=== PATIENT | male | born 1955 | race Caucasian/White ===

== ENCOUNTER 2025-06-27 00:47 | Inpatient (IN) | payer MEDICARE, SELFPAY ==
[~2025-06-27] VITALS: Ht 175.3 cm; Wt 94.2 kg
[2025-06-27] VITALS (17 sets, daily range): BP systolic 98–168; BP diastolic 57–83; TEMP 96.8–97.5; O2SAT 95–97
[~2025-06-27 00:47] MED LIST: UNRESOLVED CLARIFICATION ENTRY XX SCH
[2025-06-27] MEDS ORDERED: MOM 30 ML SUSPENSION UDC PO PRN (03:45)
[2025-06-27] MEDS ORDERED: MAALOX 30 ML SUSP *UDC PO PRN (03:45)
[2025-06-27] MEDS ORDERED: traZODone 50 MG TAB PO PRN (03:45)
[2025-06-27 05:01] LABS: BASO # 0.1 10^3/uL (0.0-0.2); BASO % 0.7 % (0.0-1.0); EOS # 0.3 10^3/uL (0.0-0.5); EOS % 3.7 % (0.0-3.0); LYMPH # 1.7 10^3/uL (1.5-5.0); LYMPH % 23.2 % (24.0-44.0); MONO # 0.5 10^3/uL (0.0-0.8); MONO % 7.2 % (2.0-8.0); NEUTROPHILS # 4.7 10^3/uL (1.5-8.5); NEUTROPHILS % 64.9 % (36.0-66.0); PLATELET COUNT, AUTOMATED 245 10^3/uL (150-450)
[2025-06-27 05:33] LABS: ALT/SGPT 24 U/L (7.0-40); AST/SGOT 27 U/L (<34); CALCIUM LEVEL 8.8 MG/DL (8.3-10.6); CARBON DIOXIDE LEVEL 22 MMOL/L (20-31); CHLORIDE LEVEL 110 MMOL/L (98-107); CREATININE FOR GFR 0.84 MG/DL (0.70-1.30); GLOMERULAR FILTRATION RATE > 90.0 (>42); MAGNESIUM LEVEL 2.2 MG/DL (1.8-2.4); POTASSIUM SERUM 4.1 MMOL/L (3.5-5.1); SODIUM LEVEL 142 MMOL/L (136-145)
[2025-06-27] MEDS: MULTIVITAMINS/MINERALS THERAP 1 TAB PO SCH (08:36)
[2025-06-27] MEDS: FOLIC ACID 1 MG TAB PO SCH (08:36)
[2025-06-27] MEDS: THIAMINE 100 MG TAB PO SCH (08:36)
[2025-06-27] MEDS ORDERED: OMEP40CA4 PO (10:16)
[2025-06-27] MEDS ORDERED: SIMV40TA20 PO (10:16)
[2025-06-27] MEDS ORDERED: FLUO-365 PO (10:16)
[2025-06-27] MEDS ORDERED: LISI20TA33 PO (10:16)
[2025-06-27] MEDS ORDERED: HOME MED LIST COMPLETE! XX SCH (10:20)
[2025-06-27] MEDS: ENOXAPARIN 40 MG/0.4 ML SYRINGE (J1650 PER 10MG) SC SCH (11:42)
[2025-06-28] VITALS (23 sets, daily range): BP systolic 103–157; BP diastolic 58–89; TEMP 97–97.7; O2SAT 89–99
[2025-06-28 04:45] LABS: BASO # 0.1 10^3/uL (0.0-0.2); BASO % 0.6 % (0.0-1.0); EOS # 0.3 10^3/uL (0.0-0.5); EOS % 3.7 % (0.0-3.0); LYMPH # 1.8 10^3/uL (1.5-5.0); LYMPH % 20.7 % (24.0-44.0); MONO # 0.6 10^3/uL (0.0-0.8); MONO % 7.3 % (2.0-8.0); NEUTROPHILS # 5.7 10^3/uL (1.5-8.5); NEUTROPHILS % 67.3 % (36.0-66.0); PLATELET COUNT, AUTOMATED 223 10^3/uL (150-450)
[2025-06-28 05:11] LABS: ALT/SGPT 25 U/L (7.0-40); AST/SGOT 30 U/L (<34); CALCIUM LEVEL 9.3 MG/DL (8.3-10.6); CARBON DIOXIDE LEVEL 26 MMOL/L (20-31); CHLORIDE LEVEL 107 MMOL/L (98-107); CREATININE FOR GFR 0.89 MG/DL (0.70-1.30); GLOMERULAR FILTRATION RATE > 90.0 (>42); POTASSIUM SERUM 4.3 MMOL/L (3.5-5.1); SODIUM LEVEL 141 MMOL/L (136-145)
[2025-06-28] MEDS: ACETAMINOPHEN 325 MG TAB PO PRN (08:05)
[2025-06-28 11:43] LABS: ALT/SGPT 25 U/L (7.0-40); AST/SGOT 30 U/L (<34); CALCIUM LEVEL 9.3 MG/DL (8.3-10.6); CARBON DIOXIDE LEVEL 26 MMOL/L (20-31); CHLORIDE LEVEL 107 MMOL/L (98-107); CREATININE FOR GFR 0.84 MG/DL (0.70-1.30); GLOMERULAR FILTRATION RATE > 90.0 (>42); POTASSIUM SERUM 4.3 MMOL/L (3.5-5.1); SODIUM LEVEL 143 MMOL/L (136-145)
[2025-06-28] MEDS: IBUPROFEN 400 MG TAB PO PRN (11:57)
[2025-06-29] VITALS (15 sets, daily range): BP systolic 124–209; BP diastolic 58–98; TEMP 96.4–97.9; O2SAT 95–99
[2025-06-29] MEDS ORDERED: LOSARTAN 25 MG TAB PO ONE (16:55)
[2025-06-29] MEDS: CHLORTHALIDONE 12.5 MG PER 1/2 TABLET PO ONE (17:57)
[2025-06-29] MEDS: SERTRALINE HCL 50 MG TAB PO SCH (20:24)
[2025-06-30] VITALS (7 sets, daily range): BP systolic 140–205; BP diastolic 70–93; TEMP 97–98; O2SAT 97–99
[2025-06-30] MEDS: CHLORTHALIDONE 12.5 MG PER 1/2 TABLET PO SCH (08:12)
[2025-06-30] MEDS: OMEPRAZOLE 20MG CAP PO SCH (08:13)
[2025-06-30] MEDS: SIMVASTATIN 40 MG TAB PO SCH (08:13)
[2025-06-30] MEDS ORDERED: LOSARTAN 25 MG TAB PO SCH (09:00)
[2025-06-30] MEDS ORDERED: CHLO125TA PO (14:00)
== END 2025-06-30 14:05 | DRG 918 ==
LOC: M ICU 00:47
PROVIDERS: ADMIT Internal Medicine; ATTEND Student in an Organized Health Care Education/Training Program
DX: T42.8X2A Poisoning by antiparkinsonism drugs and other central muscle-tone depressants, intentional self-harm, initial encounter (principal); F33.2 Major depressive disorder, recurrent severe without psychotic features; E78.5 Hyperlipidemia, unspecified; K21.9 Gastro-esophageal reflux disease without esophagitis; I10 Essential (primary) hypertension; Y92.009 Unspecified place in unspecified non-institutional (private) residence as the place of occurrence of the external cause; R00.1 Bradycardia, unspecified; G47.33 Obstructive sleep apnea (adult) (pediatric); F10.10 Alcohol abuse, uncomplicated; F41.1 Generalized anxiety disorder; E83.42 Hypomagnesemia; I95.2 Hypotension due to drugs; Z79.899 Other long term (current) drug therapy; Z79.891 Long term (current) use of opiate analgesic

== ENCOUNTER 2025-06-30 12:22 | Inpatient (IN) | payer MEDICARE ==
[~2025-06-30] VITALS: Ht 175.3 cm; Wt 94.2 kg
[~2025-06-30 12:22] MED LIST changes: +FLUO-365 PO; +LISI20TA33 PO; +OMEP40CA4 PO; +SIMV40TA20 PO; -UNRESOLVED CLARIFICATION ENTRY XX SCH
[2025-06-30] MEDS ORDERED: IBUPROFEN 400 MG TAB PO PRN (12:35)
[2025-06-30] MEDS ORDERED: MOM 30 ML SUSPENSION UDC PO PRN (12:35)
[2025-06-30] MEDS ORDERED: MAALOX 30 ML SUSP *UDC PO PRN (12:35)
[2025-06-30] MEDS ORDERED: traZODone 50 MG TAB PO PRN (12:35)
[2025-06-30] MEDS ORDERED: CHLO125TA PO (14:00)
[2025-06-30 14:35] VITALS: BP 134/71; TEMP 97; O2SAT 97
[2025-06-30] MEDS: SERTRALINE HCL 50 MG TAB PO SCH (20:37)
[2025-07-01 06:34] VITALS: BP 160/90; TEMP 97.1; O2SAT 96
[2025-07-01] MEDS: SIMVASTATIN 40 MG TAB PO SCH (11:28)
[2025-07-01] MEDS: OMEPRAZOLE 20MG CAP PO SCH (11:29)
[2025-07-01] MEDS: CHLORTHALIDONE 12.5 MG PER 1/2 TABLET PO SCH (11:29)
[2025-07-01 15:23] VITALS: BP 136/91; TEMP 98.1; O2SAT 97
[2025-07-02 06:30] VITALS: BP 144/96; TEMP 97.1; O2SAT 99
[2025-07-02] MEDS: ACETAMINOPHEN 325 MG TAB PO PRN (08:23)
[2025-07-02 16:26] VITALS: BP 136/87; TEMP 97; O2SAT 97
[2025-07-03 06:32] VITALS: BP 150/77; TEMP 97.3; O2SAT 98
[2025-07-03 08:57] VITALS: BP 112/61
[2025-07-03] MEDS ORDERED: SERT50TA29 PO (09:45)
== END 2025-07-03 14:00 | disposition home or self-care (01) | DRG 885 ==
LOC: M PSY 14:15
PROVIDERS: ADMIT General Practice; ATTEND Psychiatry & Neurology Psychiatry
DX: F32.2 Major depressive disorder, single episode, severe without psychotic features (principal); Z91.51 Personal history of suicidal behavior; E78.5 Hyperlipidemia, unspecified; K21.9 Gastro-esophageal reflux disease without esophagitis; I10 Essential (primary) hypertension; Z63.0 Problems in relationship with spouse or partner; F41.1 Generalized anxiety disorder; F10.10 Alcohol abuse, uncomplicated; Z79.899 Other long term (current) drug therapy